=== PATIENT | female | born 1955 | race African-American/Black ===

== ENCOUNTER 2020-11-12 20:48 | Emergency (ER) | payer BC, OTHER ==
[~2020-11-12] VITALS: Ht 160 cm; Wt 126.0 kg
[2020-11-12] MEDS ORDERED: IPRATROPIUM/ALBUTEROL 0.5-3(2.5)MG/3ML NEB HHN ONE (22:15)
[2020-11-12] MEDS ORDERED: FAMOTIDINE 20MG TABLET PO ONE (22:15)
[2020-11-12] MEDS ORDERED: PREDNISONE 20MG TABLET PO ONE (22:15)
[2020-11-13 00:32] LABS: CLARITY URINE CLEAR (CLEAR); COLOR URINE YELLOW (YELLOW); KETONES URINE NEGATIVE (NEGATIVE); LEUKOCYTE ESTERASE URINE NEGATIVE (NEGATIVE); NITRITE URINE NEGATIVE (NEGATIVE); OCCULT BLOOD URINE NEGATIVE (NEGATIVE); PROTEIN URINE NEGATIVE (NEGATIVE); SPECIFIC GRAVITY URINE 1.032 (1.005-1.030); UROBILINOGEN URINE 0.2 E.U./dL (0.2-1.0)
[2020-11-13] MEDS ORDERED: P50 MT (01:32)
[2020-11-13 02:09] VITALS: BP 124/76
== END 2020-11-13 02:16 | disposition home or self-care (01) ==
LOC: ER 20:48
DX: T78.1XXA Other adverse food reactions, not elsewhere classified, initial encounter (principal); R20.2 Paresthesia of skin; J45.909 Unspecified asthma, uncomplicated; Y93.89 Activity, other specified; X58.XXXA Exposure to other specified factors, initial encounter; Y92.89 Other specified places as the place of occurrence of the external cause; I10 Essential (primary) hypertension; E11.9 Type 2 diabetes mellitus without complications; G47.30 Sleep apnea, unspecified; Z91.013 Allergy to seafood; Z91.010 Allergy to peanuts; Z91.018 Allergy to other foods; Z91.040 Latex allergy status; Z91.09 Other allergy status, other than to drugs and biological substances; Z79.899 Other long term (current) drug therapy; Z85.3 Personal history of malignant neoplasm of breast; Z90.10 Acquired absence of unspecified breast and nipple
CPT/HCPCS: 81003; 93005; 94640; 99284; J7512; Z7610